=== PATIENT | male | born 1955 | race Hispanic/Latino ===

== ENCOUNTER → 2018-10-04 | Outpatient (CLI) | payer BC ==
[~2018-10-04] MED LIST: GADOBENATE DIMEGLUMINE 1 ML IV ONE
[2018-10-04 11:38] LABS: BLOOD UREA NITROGEN 15 mg/dL (7-26); BUN/CREATININE RATIO 16 (6-25); CREATININE, SERUM 0.91 mg/dL (0.72-1.25); EST GLOMERULAR FILTRATION RATE > 60 ML/MIN (60-)
--- NOTE | 2018-10-05 09:29 | Diagnostic Imaging Report ---
MRI abdomen CPT code: 84326 Indication: Liver mass 573.8 - R16.0 ^LIVER MASS/DIABETIC/HTN Technique: Axial T1 nonfat sat in and out of phase, axial T2 fat sat, coronal T2 nonfat sat, axial DWI and ADC MR images of the abdomen were obtained before and after the administration of 17 cc of gadolinium. Axial T1 fat sat GRE dynamic images in precontrast, arterial, venous and delayed phases were obtained. Comparison: None Findings: This examination is significantly motion degraded. 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 No evidence of delayed enhancement. * Mass in the liver dome measures 11.8 x 11.2 cm in the axial plane (series 11, image 65). * Mass in the lateral right lobe measures 3.8 x 2.8 cm in the axial plane (series 11, image 70). There are at least 3 subcapsular masses in the left lobe. * Mass segment 2/3 measures 2.6 x 2.2 cm in the axial plane (series 4, image 15) * Mass in segment 3 measures 1.6 x 2.2 cm (series 4, image 18). * Mass in segment 4 measures 1.5 x 1.6 cm (series 11, image 79). Gallbladder: Present and is not particularly dilated. No mural thickening. Biliary tree: There is diffuse intrahepatic biliary ductal dilatation. The common hepatic ducts come to a tight taper at the hilum of the liver. The common bile duct is diminutive. Pancreas: Mass in the jordin hepatis impressing on the pancreas head measures 5.5 x 5.6 cm in the axial plane. This has similar signal to the hepatic parenchyma. There is no pancreas ductal dilatation or peripancreatic inflammation. The pancreas parenchyma has normal T1 signal. Spleen: Measures 13.7 cm in length. Normal T1 and T2 signal. No mass. Adrenal glands: No evidence for mass. Kidneys: No hydronephrosis. No solid mass. Subcentimeter cyst in the lower pole of the right kidney. Lymph nodes: Large lymph node in the jordin hepatis as described above. No enlarged lymph nodes elsewhere. Vasculature: * Main right portal vein thrombus without hypervascularity to suggest tumor thrombus. The left portal vein and main portal vein are patent. There are small varices at the inferior aspect of the right lobe. The SMV is widely patent without surrounding soft tissue. The intrahepatic veins are patent. * Mass effect on the infrahepatic IVC due to the large mass in the jordin hepatis. * No evidence of thrombus in the IVC. * The aorta is normal in diameter * The branches of the celiac artery and the SMA are widely patent. Three arteries supply the right kidney. A single artery supplies the left kidney. Bowel: Stomach and visualized portions of the small bowel and large bowel are normal in diameter with normal wall thickness. Peritoneum/retroperitoneum: No free fluid or fluid collection. Lung bases: Lung volumes are low. No evidence of mass in the visualized portions. Visualized portion of the mediastinum is normal. Bones: Normal marrow signal. No focal osseous lesions. IMPRESSION: 1. Motion degraded exam. 2. 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 This may represent a primary hepatic neoplasm or metastasis. Biopsy is recommended for tissue diagnosis. 3. Common hepatic biliary duct obstruction without visualization of an obstructing mass on this exam. However, given the presence of motion degradation, this cannot be excluded. Common hepatic biliary duct obstruction may also be secondary to mass effect from the large metastatic mass in the jordin hepatis. Recommend further evaluation of the biliary tree with ERCP. External biliary drainage should be considered if there are signs/symptoms of jaundice. 4. Right portal vein thrombus. Tumor thrombus cannot be excluded on these motion degraded images. Recommend reevaluation with dynamic contrast-enhanced CT. 5. Mass effect on the pancreas head due to the metastatic mass in the jordin hepatis. There are no secondary signs to suggest a primary pancreatic neoplasm. The tissue planes surrounding the SMA and celiac artery and SMV are clean. 6. Mild splenomegaly. No ascites. Signed by: Dr. Keny Chen MD on 10/05/2018 9:25 AM
== END ==
LOC: MRI 10:26
PROVIDERS: ATTEND Internal Medicine Gastroenterology
DX: R16.0 Hepatomegaly, not elsewhere classified (principal); E11.9 Type 2 diabetes mellitus without complications; I10 Essential (primary) hypertension; E66.3 Overweight; Z71.3 Dietary counseling and surveillance; Z12.11 Encounter for screening for malignant neoplasm of colon
CPT/HCPCS: 36415; 74183; 82565; 84520; A9577